=== PATIENT | female | born 1955 | race Caucasian/White ===

== ENCOUNTER → 2022-03-08 | Outpatient (CLI) | payer OTHER | END | disposition home or self-care (01) | LOC: SHCH 07:46 | PROVIDERS: ATTEND Student in an Organized Health Care Education/Training Program | DX: I87.2 Venous insufficiency (chronic) (peripheral) (principal) | CPT/HCPCS: 93970 ==

== ENCOUNTER → 2022-06-15 | Outpatient (CLI) | payer OTHER | END | disposition home or self-care (01) | LOC: SHCH 08:23 | PROVIDERS: ATTEND Student in an Organized Health Care Education/Training Program | DX: I82.421 Acute embolism and thrombosis of right iliac vein (principal); M79.89 Other specified soft tissue disorders; E78.5 Hyperlipidemia, unspecified; E11.9 Type 2 diabetes mellitus without complications; I10 Essential (primary) hypertension; J44.9 Chronic obstructive pulmonary disease, unspecified | CPT/HCPCS: 93970 ==